=== PATIENT | female | born 1945 | race Caucasian/White ===

== ENCOUNTER 2018-07-27 14:09 | Emergency (ER) | payer MEDICARE, OTHER, SELFPAY ==
[2018-07-27 14:10] VITALS: BP 178/90; PULSE 70; RESP 16; TEMP 36.3; O2SAT 100; BMI 23.0
--- NOTE | 2018-07-27 14:18 | NURSING ---
NO OLD EKGS
[2018-07-27 14:27] VITALS: O2SAT 100
--- NOTE | 2018-07-27 14:27 | RAD_ITS ---
STUDY: X-RAY CHEST REASON FOR EXAM: Female, 73 years old. New onset chest pain TECHNIQUE: AP COMPARISON: None. FINDINGS: EKG leads project over the chest. The lungs are clear and expanded. There is no demonstrated pleural abnormality. Normal size heart. Normal mediastinum and caprice. Normal visualized pulmonary arteries. Normal visualized aortic arch and descending thoracic aorta. Normal visualized thoracic spine. Normal visualized ribs, clavicles, and shoulders. There is no demonstrated abnormality of the visualized soft tissue structures of the upper abdomen. RAD/Chest 1 View (Portable) IMPRESSION: Nonacute portable x-ray examination of the chest. Electronically Signed: Destin Jasso MD at 15:55 EST , Service support ,
--- NOTE | 2018-07-27 14:27 | EKG12_ITS ---
Test Reason : CP Blood Pressure : / mmHG Vent. Rate : 067 BPM Atrial Rate : 067 BPM P-R Int : 152 ms QRS Dur : 080 ms QT Int : 412 ms P-R-T Axes : 065 -10 033 degrees QTc Int : 435 ms Normal sinus rhythm Normal ECG Confirmed by LYNDSEY BENITEZ MD ([id number]), purchase request editor REVA MORENO ([id number]) on 07/30/2018 10:03:55 AM Referred By: Confirmed By:LYNDSEY BENITEZ MD
[2018-07-27 14:39] LABS: Absolute Lymphocyte Count 1.26 X10^3/ul (0.83-4.51); Basophil# 0.02 X10^3/uL; Basophil% 0.4 % (0-1); Eosinophil# 0.14 X10^3/uL; Eosinophils% 2.9 % (0-5); Hematocrit 44.6 % (37-47); Hemoglobin 14.6 g/dl (12.0-15.0); Lymphocyte # 1.26 X10^3/ul (4.0); Lymphocyte % 26.5 % (19-41); Mean Corp Hgb Conc 32.7 g/gl (32-36); Mean Corpuscular Hgb 33.4 pg (27.0-32.0); Mean Corpuscular Volume 102.1 fL (81-99); Mean Platelet Vol. 9.6 fl (6.2-12.0); Monocyte# 0.36 X10^3/uL; Monocyte% 7.6 % (0-10); Neutrophil # 2.96 X10^3/uL (2.7-7.7); Neutrophil % 62.4 % (47-70); Platelet Count 295 K/mm3 (150-450); RBC Distribution Width SD 49.3 fl (35.1-43.9); Red Blood Count 4.37 M/mm3 (4.2-5.4); White Blood Count 4.8 K/mm3 (4.4-11.0)
[2018-07-27 14:40] LABS: POSITIVE COUNT NO; POSITIVE DIFFERENTIAL NO; POSITIVE MORPHOLOGY NO
[2018-07-27 14:54] LABS: Anion Gap 9 (5-15); BUN 16 mg/dL (7-18); BUN/Creat Ratio 15.1 RATIO (10-20); Calcium,Total 9.5 mg/dL (8.5-10.1); Chloride 105 mmol/L (98-107); Creatinine, Serum 1.06 mg/dL (0.55-1.02); EST Glomerular Filtration Rate 54 mL/min (>60); Est Glom Filt Rate - Afr Amer 65 mL/min (>60); Estimated Creatinine Clearance 34.46 ml/min; Glucose 119 mg/dL (74-106); Potassium 3.9 mmol/L (3.5-5.1); Sodium Level 139 mmol/L (136-145)
--- NOTE | 2018-07-27 15:08 | ED.DCSUM_ITS ---
- ER Visit Summary Date of Service: 07/27/18 Chief Complaint: Chest pain History of Present Illness: The patient is a 73 F who presents with chest pain that began this morning. Patient states the pain has been intermittent throughout the day today. Patient states the pain only lasted approximately 5 minutes. Patient describes pain as aching. Patient states the pain is over the left parasternal area. Patient states nothing seems to make it better or worse. Patient does admit to some tingling in her left arm. Patient denies any nausea, vomiting, diarrhea. Patient denies any shortness of breath or diaphoresis. Patient denies any cough or fever. Patient denies any lightheadedness or dizziness. Patient denies any reflux. Patient denies any palpitations. Patient has a history of hypertension but denies any other cardiac or PE risk factors. Physical Examination: Vital signs are stable. Patient is afebrile. Patient is in no acute distress. Oral mucosa is pink and moist. Neck is supple. Trachea is midline. There is no JVD noted. Heart was regular rate and rhythm. Lungs are clear and equal bilateral. Abdomen is soft. Bowel sounds are normal. There is no tenderness. There is no guarding noted. Skin is warm dry. Cranial nerves II through XII are intact. There are no focal motor or sensory deficits noted. The remaining physical exam is within normal limits. Test Results: EKG showed normal sinus rhythm with a rate of 67. There are no acute ST or T wave changes noted. CBC, basic metabolic profile, and troponin were obtained and were all normal. Chest x-ray does not show any acute cardiopulmonary process. This was interpreted by the radiologist and reviewed by myself. Emergency Department Course and Treatment: Patient felt better on reevaluation. Patient had no further episodes of chest pain here in the emergency department. Patient has a HEART score of 3 and a RUTH score of 2. Patient was advised that this is low risk for acute cardiac event. Patient was instructed to follow-up with her primary care physician in 3-5 days for further evaluation. Patient was instructed to return if worse in any way. Patient and her understood and were agreeable with the plan. All questions were answered. Disposition: Discharge home Impression: Chest pain This note was generated with [employer] dictation software. It may contain incorrect words, spelling, and punctuation that were not noted in review of the chart prior to signing ED Disposition - Plan for ED Patient: Disposition: Home or Assisted Living Diagnosis: Chest pain of uncertain etiology Instructions: ED Chest Pain Atypical Unkn Cause Referrals: Town Doctor,Out of [Primary Care Provider] -
[2018-07-27 15:13] VITALS: BP 190/80; PULSE 60; RESP 19; O2SAT 99
[2018-07-27 16:11] VITALS: BP 170/82; PULSE 57; RESP 18; O2SAT 96
== END 2018-07-27 16:12 | disposition home or self-care (01) ==
PROVIDERS: Emergency Provider Emergency Medicine
DX: R07.9 Chest pain, unspecified (principal); M54.2 Cervicalgia; R21 Rash and other nonspecific skin eruption; R51 Headache; I10 Essential (primary) hypertension
CPT/HCPCS: 71045; 80048; 84484; 85025; 93005; 99284; A4216